=== PATIENT | male | born 1995 | race Caucasian/White ===

== ENCOUNTER → 2016-11-14 | Outpatient (REF) | payer OTHER | END | disposition home or self-care (01) | LOC: M SFHCLERA 09:36 | PROVIDERS: ATTEND Physician Assistant | DX: J02.9 Acute pharyngitis, unspecified (principal) ==

== ENCOUNTER 2017-02-10 22:28 | Emergency (ER) | payer BC, OTHER, SELFPAY ==
[~2017-02-10] VITALS: Ht 180.3 cm; Wt 74.8 kg
--- NOTE | 2017-02-10 23:50 | REPUSA ---
Clinical history: Pain. Findings: Real-time ultrasound imaging of the testicles and scrotum was performed. The right testicle .3 x 2.8 x 2.8 cm. The left testicle measures 4.9 x 2.6 x 2.8 cm. The testicles demonstra te normal echo texture and echogenicity. Normal color Doppler flow and arterial waveforms are seen w ithin the right testicle. However, there is significantly diffuse increased vascularity within the le ft testicle. No fluid collections are seen. Impression: Left-sided orchitis.
[2017-02-11] MEDS ORDERED: DOXY100C37 PO (00:07)
[2017-02-11] MEDS ORDERED: TRAM50TA2 PO (00:11)
[2017-02-11] MEDS ORDERED: cefTRIAXone SOD 500 MG VIAL (J0696) IM ONE (00:15)
[2017-02-11] MEDS ORDERED: AZITHROMYCIN 250 MG TAB PO ONE (00:15)
[2017-02-11] MEDS ORDERED: cefTRIAXone SOD 250 MG VIAL (J0696) As Ordered ONE (00:41)
[2017-02-11 01:29] VITALS: BP 123/73
== END 2017-02-11 01:30 | disposition home or self-care (01) ==
LOC: M ED 23:19
DX: N45.2 Orchitis (principal)
CPT/HCPCS: 76870; 87491; 87591; 96372; 99282; J0696

== ENCOUNTER 2017-02-25 16:59 | Emergency (ER) | payer BC ==
[~2017-02-25] VITALS: Ht 177.8 cm; Wt 72.6 kg
[~2017-02-25 16:59] MED LIST: DOXY100C37 PO; TRAM50TA2 PO
--- NOTE | 2017-02-25 19:00 | REPUSA ---
CLINICAL HISTORY: Left testicular pain. Atraumatic. TECHNIQUE: Realtime sonographic images were obtained in multiple projections. COMMENTS: Compared to 02/10/17 study. Both testicles are of normal size and shape and are of homogeneous echo texture. The right testicle measures 4.5 cm (CC) x 2.7 cm (AP) x 3.3 cm (transverse). The right epididymal head measures 5.8 mm. The left testicle measures 4.2 cm (CC) x 1.9 cm (AP) x 2.4 cm (transverse). Left epididymal head me asures 5.3 mm. Small left epididymal head cyst measuring 0.3 x 0.2 x 0.3 cm is seen. Right scrotal wall thickness is 2 mm and left scrotal wall thickness is 2 mm. Right testicular RI is 0.56, PSV is 4.3 cm/s and EDV is 1.9 cm/s. Left testicular RI is 0.49, PSV is 8.7 cm/s and EDV is 4.4 cm/s. Color Doppler images reveal normal symmetrical flow to the testicles. There is no evidence for testi cular torsion. There is no evidence of varicocele or hydrocele. IMPRESSION: 1. Small left epididymal head cyst. 2. Left testis mildly heterogeneous which may be related to mild or resolving infection. 3. Bilateral microlithiasis. Thank you for your kind referral of this patient. We appreciate the opportunity to participate in thi s patient's care.
[2017-02-25 19:45] VITALS: BP 119/64
--- NOTE | 2017-02-27 18:11 | ED PDOC ---
Post-Departure Follow-Up dr rai faxed formal report of scrotal us for fu Antonino Rasmussen MD February 27, 2017 18:11
== END 2017-02-25 19:53 | disposition home or self-care (01) ==
LOC: M ED 17:37
DX: N50.3 Cyst of epididymis (principal); N50.89 Other specified disorders of the male genital organs

== ENCOUNTER → 2017-03-05 | Outpatient (REF) | payer BC | LOC: M LAB REF 17:05 | PROVIDERS: ATTEND Nurse Practitioner Women's Health | DX: N45.2 Orchitis (principal) ==

== ENCOUNTER → 2018-03-27 | Outpatient (REF) | payer BC | LOC: M SFHCLERA 12:51 | DX: J02.9 Acute pharyngitis, unspecified (principal) ==

== ENCOUNTER 2018-03-30 18:08 | Emergency (ER) | payer BC ==
[2018-03-30 19:31] LABS: KETONE, URINE AUTO RFX NEGATIVE (NEGATIVE); LEUKOCYTE ESTERASE UR AUTO RFX NEGATIVE (NEGATIVE); NITRITE, URINE AUTO RFX NEGATIVE (NEGATIVE); RBC, URINE AUTO RFX 0 /HPF (0-3); SPECIFIC GRAVITY UR AUTO RFX 1.005 (1.002-1.035); SQUAM EPITHELIAL CELL UR AURFX 0 /HPF (0-6); WBC, URINE AUTO RFX 0 /HPF (0-3)
[2018-03-30 21:29] LABS: CHLAMYDIA DNA AMPLIFICATION NEGATIVE (NEGATIVE); GC DNA AMPLIFICATION NEGATIVE (NEGATIVE)
[2018-03-30] MEDS: CIPROFLOXACIN 500 MG TAB PO (22:12)
== END 2018-03-30 22:34 | disposition home or self-care (01) ==
LOC: M ED 18:08
DX: N45.2 Orchitis (principal); Z87.438 Personal history of other diseases of male genital organs
CPT/HCPCS: 76870

== ENCOUNTER → 2018-05-03 | Outpatient (REF) | payer BC ==
[2018-05-03 13:04] LABS: APPEARANCE, URINE CLEAR (CLEAR); BACTERIA, URINE AUTO NEGATIVE (NEGATIVE); BILIRUBIN, URINE AUTO NEGATIVE (NEGATIVE); BLOOD, URINE BLOOD NEGATIVE (NEGATIVE); COLOR, URINE STRAW (YELLOW); GLUCOSE, URINE (UA) AUTO NEGATIVE (NEGATIVE); KETONE, URINE AUTO NEGATIVE (NEGATIVE); LEUKOCYTE ESTERASE, URINE AUTO NEGATIVE (NEGATIVE); NITRITE, URINE AUTO NEGATIVE (NEGATIVE); PROTEIN, URINE AUTO NEGATIVE (NEGATIVE); RBC, URINE AUTO 0 /HPF (0-3); SPECIFIC GRAVITY URINE AUTO 1.006 (1.002-1.035); SQUAMOUS EPITHELIAL CELL UR AU 0 /HPF (0-6); UROBILINOGEN, URINE AUTO 0.2 mg/dL (0.0-2.0); WBC, URINE AUTO 0 /HPF (0-3)
[2018-05-03 15:56] LABS: CHLAMYDIA DNA AMPLIFICATION NEGATIVE (NEGATIVE); GC DNA AMPLIFICATION NEGATIVE (NEGATIVE)
== END ==
LOC: M SMT 12:44
DX: N45.2 Orchitis (principal)

== ENCOUNTER → 2018-11-30 | Outpatient (REF) | payer BC ==
[~2018-11-30] MED LIST changes: +CIPR-249 PO
[2018-11-30 20:24] LABS: CHLAMYDIA DNA AMPLIFICATION NEGATIVE (NEGATIVE); GC DNA AMPLIFICATION NEGATIVE (NEGATIVE)
== END ==
LOC: M SFHCLERA 14:10
PROVIDERS: ATTEND Physician Assistant
DX: R10.31 Right lower quadrant pain (principal)

== ENCOUNTER → 2019-05-13 | Outpatient (REF) | payer BC ==
[2019-05-13 23:31] LABS: CHLAMYDIA DNA AMPLIFICATION NEGATIVE (NEGATIVE); GC DNA AMPLIFICATION NEGATIVE (NEGATIVE)
== END ==
LOC: M SFHCLERA 17:54
PROVIDERS: ATTEND Physician Assistant
DX: N50.811 Right testicular pain (principal)

== ENCOUNTER → 2019-12-29 | Outpatient (REF) | payer BC, OTHER ==
[2019-12-29 18:23] LABS: CHLAMYDIA DNA AMPLIFICATION POSITIVE (NEGATIVE); GC DNA AMPLIFICATION NEGATIVE (NEGATIVE)
== END ==
LOC: M SFHCLERA 13:59
PROVIDERS: ATTEND Nurse Practitioner Family
DX: R30.0 Dysuria (principal)

== ENCOUNTER → 2020-01-09 | Outpatient (CLI) | payer BC, OTHER | LOC: M LABSMTC 12:44 | PROVIDERS: ATTEND Family Medicine | DX: Z11.59 Encounter for screening for other viral diseases (principal); Z20.818 Contact with and (suspected) exposure to other bacterial communicable diseases | CPT/HCPCS: 87502; U0002 ==

== ENCOUNTER → 2024-12-24 | Outpatient (REF) | payer OTHER ==
[~2024-12-24] MED LIST changes: +DOXY-441 PO; -DOXY100C37 PO
[2024-12-24 12:44] LABS: SEMEN APPEARANCE OPAQUE (OPAQUE); SEMEN VISCOSITY LIQUID (LIQUID); SPERM CONCENTRATION 41.7 M/ml (>=15.0); WBC CONCENTRATION <=1 M/ml (<=1 M/ml)
[2024-12-24 12:45] LABS: TOTAL PROGRESSIVE SPERM 30.7 M/Ejac.
== END ==
LOC: M LAB REF 11:26
PROVIDERS: ATTEND Student in an Organized Health Care Education/Training Program
DX: Z01.89 Encounter for other specified special examinations (principal)